=== PATIENT | female | born 1985 | race Caucasian/White ===

== ENCOUNTER 2017-12-19 13:56 | Emergency (ER) | payer OTHER ==
[~2017-12-19] VITALS: Ht 157.5 cm; Wt 72.8 kg
[~2017-12-19 13:56] MED LIST: ABILIFY5 MG PO; ACETAMINOPHEN-1 EAC1; ALBUTEROL SULF8.5 GM IH; AMOXICILLIN500 MG; APAP; ATARAX,VISTARIL50 MG PO; ATIVAN1 MG PO; BENTYL10 MG PO; BENTYL20 MG PO; BUPROPION HCL100 M1 PO; CEPACOL SORE THR3 MG MM; CLONIDINE HCL0.1 MG PO; DEXILANT60 MG; DIVALPROEX SOD500 M1 PO; DOXYCYCLINE HYC50 MG; ELAVIL50 MG PO; ENDOCET 5-3251 EACH PO; FENTANYL1 EAC4 TD; FLEET ENEMA-AD118 ML PR; FLUCONAZOLE100 MG; FLUCONAZOLE150 MG; HYDROCO; HYOSCYAMINE; HYOSCYAMINE0.375 MG; IMITREX100 MG PO; IRON325 MG PO; KEFLEX500 MG PO; LAMICTAL25 MG PO; LIBRAX, CLI1 CAPSULE; LIDODERM 5% P1 PATCH; LYRICA100 MG PO; METRONIDAZOLE500 MG; MILK OF MAGN PO; MOBIC15 MG PO; MORPHINE SULFAT15 M1 PO; Motrin PO; NASONEX17 GM; NOHOMEMEDS; OXYCODONE HCL10 MG PO; OXYCODONE-APAP1 EACH PO; PANTOPRAZOLE SO40 MG; PAXIL10 MG PO; PEN-VEE K,VEET500 MG PO; PEPTO BISMOL262 MG PO; PERCOCET 10/1 TABLET PO; PERCOCET 5/31 TABLET PO; PROMETHAZINE HC25 M1 PO; PROTONIX40 MG PO; QUETIAPINE FUM100 MG PO; QUETIAPINE FUM200 MG PO; QUETIAPINE FUMA50 MG PO; SUMATRIPTAN SU100 MG PO; SYMAX DUOTAB0.375 MG PO; TOPAMAX50 MG PO; TOPIRAMATE100 MG PO; TRAZODONE HCL50 MG PO; TYLENOL WITH C1 EACH PO; ULTRAM50 MG PO; VENTOLIN HFA18 GM IH; WELLBUTRIN SR200 MG PO; XANAX0.25 MG PO; ZANTAC300 MG PO; ZOFRAN4 MG PO; [UNRECOGNIZED DRUG - OTHER]
[2017-12-19 16:55] LABS: HEMATOCRIT 37.1 % (36.0-46.0); HEMOGLOBIN 12.2 G/DL (11.9-15.5); MCH 29.5 PG (29.0-34.0); MCHC 32.9 G/DL (30.0-36.0); MCV 89.8 FL (83-99); PLATELET COUNT 223 K/uL (156-360); RBC DIS.WIDTH-CV 14.1 % (11.8-14.6); RBC DIS.WIDTH-SD 46.2 % (39-53); RED BLOOD COUNT 4.13 M/uL (3.80-5.20); WHITE BLOOD COUNT 5.5 K/uL (4.1-10.2)
[2017-12-19 17:13] LABS: APPEARANCE SL.HAZY ((CLEAR)); BILIRUBIN NEGATIVE; BLOOD NEGATIVE; COLOR AMBER ((YELLOW)); GLUCOSE (STRIP) NEGATIVE; KETONES 5; LEUKOCYTES NEGATIVE; NITRITE NEGATIVE; PROTEIN (STRIP) 30; SPECIFIC GRAVITY 1.028 (1.000-1.030)
[2017-12-19 17:19] LABS: TROP-I INTERPRETATION NEGATIVE; TROPONIN-I < 0.01 ng/mL (0.0-0.30)
[2017-12-19 17:22] LABS: ALBUMIN 4.1 G/DL (3.2-4.8); CHLORIDE 110 MEQ/L (99-109); POTASSIUM 3.8 MEQ/L (3.7-5.4); SODIUM 138 MEQ/L (136-147); TOTAL BILIRUBIN 0.2 MG/DL (0.0-1.0)
[2017-12-19 17:27] LABS: ALKALINE PHOSPHATASE 36 IU/L (3-129); ALT (GPT) 8 IU/L (3-49); AST (GOT) 13 IU/L (2-34); CREATININE 0.7 MG/DL (0.6-1.3); GFR ESTIMATE (CALCULATED) > 59 mL/min/; GLUCOSE 70 mg/dL (70-99); LIPASE 46 U/L (1.0-51.0); TOTAL PROTEIN 7.1 G/DL (6.4-8.3); UREA NITROGEN (BUN) 10 mg/dL (9-23)
[2017-12-19 18:05] LABS: RED BLOOD CELLS NONE SEEN /HPF (0-5); WHITE BLOOD CELLS NONE SEEN /HPF (0-5)
[2017-12-19 18:06] LABS: BACTERIA 1+ /HPF; EPITHELIAL CELLS 2+ /HPF; MUCUS 3+ /LPF; UCUL ADDED? NO
[2017-12-19] MEDS ORDERED: BENTYL10 MG PO (19:45)
[2017-12-19] MEDS ORDERED: ZOFRAN ODT4 MG PO (19:45)
[2017-12-19] MEDS ORDERED: REGLAN10 MG PO (19:45)
[2017-12-19 20:38] VITALS: BP 92/51
== END 2017-12-19 20:39 | disposition left against medical advice (07) ==
LOC: EME 13:56
PROVIDERS: Nurse Practitioner Family
DX: J06.9 Acute upper respiratory infection, unspecified (principal); R11.2 Nausea with vomiting, unspecified; Z98.84 Bariatric surgery status; M79.7 Fibromyalgia; K21.9 Gastro-esophageal reflux disease without esophagitis; K58.9 Irritable bowel syndrome, unspecified; F31.9 Bipolar disorder, unspecified; F32.9 Major depressive disorder, single episode, unspecified; F41.9 Anxiety disorder, unspecified; F90.9 Attention-deficit hyperactivity disorder, unspecified type; Z90.49 Acquired absence of other specified parts of digestive tract; F17.200 Nicotine dependence, unspecified, uncomplicated; Z91.040 Latex allergy status; Z88.5 Allergy status to narcotic agent
CPT/HCPCS: 71046; 80053; 81003; 83690; 84484; 85027; 87502; 93005; 99281; 99285; J2765